=== PATIENT | female | born 1985 | race Two or more races ===

== ENCOUNTER 2019-02-23 09:47 | Emergency (ER) | payer MEDICAID, OTHER ==
[~2019-02-23] VITALS: Ht 162.6 cm; Wt 68.0 kg
[2019-02-23] MEDS ORDERED: Ketorolac 60mg Inj IM ONE (10:00)
[2019-02-23 10:21] LABS: APPEARANCE,URINE CLEAR; BILIRUBIN, URINE NEGATIVE (NEGATIVE); COLOR,URINE PALE YELLOW; GLUCOSE, URINE (UA) NEGATIVE (NEGATIVE); KETONES,URINE NEGATIVE (NEGATIVE); LEUKOCYTE ESTERASE ,URINE NEGATIVE (NEGATIVE); NITRITE,URINE NEGATIVE (NEGATIVE); PH,URINE 7 (4.5-8.0); PROTEIN,URINE NEGATIVE (NEGATIVE); UROBILINOGEN,URINE NORMAL MG/DL (0.0-1.0)
--- NOTE | 2019-02-23 10:23 | Emergency Room Report ---
History of Present Illness General Chief Complaint: Lower Back Pain or Injury Source: Patient Present Illness HPI The patient states that she injured her low back 1 week ago. She states that she was at work and was lifting heavy objects and felt pain in her back at the time. She states that she has midline back pain since that time. She states the pain is worse when she is laying down and she has difficulty getting up from a laying down position. She denies weakness. She denies tingling or numbness. She denies loss of bowel or bladder control. She denies fever or chills. She denies recent illness. She denies dysuria or hematuria. She has no other complaints. Allergies: Coded Allergies: No Known Allergies (Unverified , 02/23/19) Patient History Past Medical History: none Social History: Denies: smoking, alcohol use, drug use Last Menstrual Period: 02/20/19 Reviewed Nursing Documentation: PMH: Agreed; PSxH: Agreed Nursing Documentation-PMH Past Medical History: No Stated History Review of Systems All Other Systems: negative except mentioned in HPI Physical Exam Vital Signs Date Time Temp Pulse Resp B/P (MAP) Pulse Ox O2 Delivery O2 Flow Rate FiO2 02/23/19 09:51 98.1 73 18 118/63 (81) 99 Room Air Sp02 EP Interpretation: reviewed, normal General Appearance: no apparent distress, alert, GCS 15, non-toxic Head: normocephalic, atraumatic Eyes: bilateral eye normal inspection, bilateral eye PERRL ENT: hearing grossly normal, no angioedema, normal voice Neck: normal inspection, full range of motion, supple/symm/no masses Respiratory: no respiratory distress, no retraction, no accessory muscle use, speaking full sentences Rectal: deferred Musculoskeletal: gait/station normal, normal range of motion, tender - Tender along the midline L-spine. Neurologic: alert, oriented x3, responsive, motor strength/tone normal, sensory intact, speech normal Psychiatric: judgement/insight normal, memory normal, mood/affect normal, no suicidal/homicidal ideation Skin: no rash, normal color Medical Decision Making Diagnostic Impression: Primary Impression: Low back strain ER Course This patient has a clinical presentation consistent with mechanical back pain secondary to Low back strain. There are no red flags on physical exam. The patient denies any concerning features such as trauma, fevers, night sweats, history of malignancy, pain worse at night, IV drug abuse, urinary/fecal incontinence or retention, focal weakness or change in sensation, or refractory pain. Given these pertinent negatives in the history and physical exam an emergent cause of the back pain such as epidural abscess, metastasis to bone, cauda equina syndrome, and fracture is less likely. I also doubt emergent cardiovascular cause of back pain such as aortic dissection a ruptured abdominal aortic aneurysm given patient with equal pulses in all 4 extremities with no diastolic murmur or pulsatile abdominal mass. L-spine x-ray was obtained and shows no significant findings. The patient was counseled that, though unlikely, the possibility of an emergent cause of back pain may still be present and that the patient should return immediately if symptoms persist or worsen. The symptoms are reproducible with movement. Patient had a benign evaluation and neurologic examination. No emergency etiology was identified. Laboratory Tests Test 02/23/19 10:00 Urine Color Pale yellow Urine Appearance Clear Urine pH 7 (4.5-8.0) Urine Specific [place] 1.005 (1.005-1.035) Urine Protein Negative (NEGATIVE) Urine Glucose (UA) Negative (NEGATIVE) Urine Ketones Negative (NEGATIVE) Urine Blood Negative (NEGATIVE) Urine Nitrite Negative (NEGATIVE) Urine Bilirubin Negative (NEGATIVE) Urine Urobilinogen Normal MG/DL (0.0-1.0) Urine Leukocyte Esterase Negative (NEGATIVE) Urine HCG, Qualitative Negative (NEGATIVE) Other X-Ray Diagnostic Results Other X-Ray Diagnostic Results : X-Ray ordered: L-spine xray # of Views/Limited Vs Complete: Complete Indication: Pain EP Interpretation: Yes Interpretation: no fractures Impression: No acute disease Electronically Signed by: Zoe Mills DO Last Vital Signs Date Time Temp Pulse Resp B/P (MAP) Pulse Ox O2 Delivery O2 Flow Rate FiO2 02/23/19 09:51 98.1 73 18 118/63 (81) 99 Room Air Status: improved Disposition: HOME, SELF-CARE Condition: Improved Scripts No Active Prescriptions or Reported Meds Patient Instructions: Low Back Sprain With Rehab-SportsMed, Lumbosacral Strain Zoe Mills DO Feb 23, 2019 10:23
[2019-02-23 10:29] VITALS: BP 118/63
--- NOTE | 2019-02-23 10:30 | NUR ---
ED Nurse Note:pt. came with c/o lower back pain after lifting heavy objects at work, urine sent to labs
--- NOTE | 2019-02-23 11:05 | NUR ---
ED Nurse Note:pt. had x-rays done
--- NOTE | 2019-02-23 11:16 | Diagnostic Imaging Report ---
Indication: Back pain Technique: XRAY L [facility] Comparison: None Findings: There is 6 nonrib-bearing lumbar-type vertebral bodies, assuming 12 paired ribs. No acute fractures identified. Lumbar lordosis is maintained, without evidence of spondylolisthesis. Vertebral body heights and disc spaces are maintained. Bowel gas pattern is unremarkable. No radiopaque foreign body. Impression: No evidence of acute fracture or traumatic malalignment. Transitional lumbosacral anatomy.
[2019-02-23] MEDS ORDERED: LIDODERM700 M1 TOPIC (11:21)
[2019-02-23] MEDS ORDERED: CYCLOBENZAPRINE10 MG ORAL (11:21)
[2019-02-23] MEDS ORDERED: IBUPROFEN800 MG ORAL (11:21)
--- NOTE | 2019-02-23 11:35 | NUR ---
ER DISCHARGE NOTE: Patient is cleared to be discharged per ERMD, pt is aox4, on room air, with stable vital signs. pt was given dc and prescription instructions, pt was able to verbalize understanding, pt is able to ambulate with steady gait. pt took all belongings.
[2019-02-23 11:37] VITALS: BP 118/63
== END 2019-02-23 11:39 | disposition home or self-care (01) ==
LOC: EMR 10:35
DX: S39.012A Strain of muscle, fascia and tendon of lower back, initial encounter (principal); X50.0XXA Overexertion from strenuous movement or load, initial encounter; Y92.9 Unspecified place or not applicable; Y99.0 Civilian activity done for income or pay
CPT/HCPCS: 72020; 81003; 81025; 96372; Z7502; 99283